=== PATIENT | female | born 1995 | race Two or more races ===

== ENCOUNTER 2018-11-01 20:13 | Emergency (ER) | payer OTHER ==
[~2018-11-01] VITALS: Ht 157.5 cm; Wt 68.2 kg
[~2018-11-01 20:13] MED LIST: DOCU-131 PO; HYDR-3240 PO; IBUP-1222 PO; PREN1TAB56 PO
--- NOTE | 2018-11-01 20:45 | NUR ---
PT HERE FOR SORES TO [facility] [place]. PT DENIES DISCHARGE BUT IS HAVING DISCOMFORT. VSS. CALL LIGHT IN REACH
[2018-11-01 21:15] VITALS: BP 121/71
--- NOTE | 2018-11-01 21:38 | NUR ---
Patient given discharge instructions and they have confirmed that they understand the instructions. Patient ambulatory with steady gait.
== END 2018-11-01 21:41 | disposition home or self-care (01) ==
LOC: ED 21:40
DX: A60.04 Herpesviral vulvovaginitis (principal)
CPT/HCPCS: 99283